=== PATIENT | female | born 1950 | race Caucasian/White ===

== ENCOUNTER 2018-11-04 11:53 | Observation (INO) ==
[2018-11-04] MEDS ORDERED: NS 1,000 ML IV ONE (13:25)
--- NOTE | 2018-11-04 13:31 | PROVIDER DOCUMENTATION ---
HPI-Syncope/Dizziness - General Chief Complaint: Dizziness Stated Complaint: DIZZY, LIGHT HEADED Time Seen by Provider: 11/04/18 13:08 Source: patient Allergies/Adverse Reactions: Patient Allergies Allergy/AdvReac Type Severity Reaction Status Date / Time cephalexin [From Keflex] Allergy ITCHING Verified 11/04/18 12:04 codeine Allergy ITCHING Verified 11/04/18 12:04 glimepiride Allergy ITCHING Verified 11/04/18 12:04 metaxalone [From Skelaxin] Allergy ITCHING Verified 11/04/18 12:04 metformin Allergy ITCHING Verified 11/04/18 12:04 morphine Allergy ITCHING Verified 11/04/18 12:04 nitrofurantoin Allergy ITCHING Verified 11/04/18 12:04 [From Macrodantin] Penicillins Allergy ITCHING Verified 11/04/18 12:04 rofecoxib [From Vioxx] Allergy ITCHING Verified 11/04/18 12:04 Home Medications: Home Medication List Medication Instructions Recorded Confirmed Last Taken Type Albuterol Sulfate [Proair 90 mg PO 4XDAY 11/04/18 11/04/18 Unknown History Respiclick] Aspirin [Aspir-Low] 81 mg PO DAILY 11/04/18 11/04/18 Unknown History Atorvastatin Calcium [Lipitor] 20 mg PO DAILY 11/04/18 11/04/18 Unknown History Buspirone [Buspar] 10 mg PO BID 11/04/18 11/04/18 Unknown History Clonidine [Catapres] 0.2 mg PO TID 11/04/18 11/04/18 Unknown History Cyclobenzaprine [Flexeril] 10 mg PO DAILY 11/04/18 11/04/18 Unknown History Dabigatran Etexilate Mesylate 150 mg PO BID 11/04/18 11/04/18 Unknown History [Pradaxa] Dapagliflozin Propanediol [Farxiga] 5 mg PO DAILY 11/04/18 11/04/18 Unknown History Dulaglutide [Trulicity] 0.75 mg PO ORDERED 11/04/18 11/04/18 Unknown History Furosemide [Lasix] 80 mg PO DAILY 11/04/18 11/04/18 Unknown History Glipizide [Glipizide ER] 10 mg PO DAILY 11/04/18 11/04/18 Unknown History Hydrocodone/APAP 10 mg/325 mg 10 mg PO TID 11/04/18 11/04/18 Unknown History [[place]irt[place]-10] Isosorbide Mononitrate E.r. [Imdur] 60 mg PO DAILY 11/04/18 11/04/18 Unknown History Lansoprazole [Prevacid] 30 mg PO DAILY 11/04/18 11/04/18 Unknown History Mesalamine [Pentasa] 500 mg PO BID 11/04/18 11/04/18 Unknown History Metoclopramide HCl [Reglan] 5 mg PO 4XDAY 11/04/18 11/04/18 Unknown History Metoprolol Succinate E.r. [Toprol 100 mg PO BID 11/04/18 11/04/18 Unknown History Xl] Nitroglycerin [Nitrostat] 0.4 mg PO PRN PRN 11/04/18 11/04/18 Unknown History Pentoxifylline E.r. [Trental] 400 mg PO TID 11/04/18 11/04/18 Unknown History Ursodiol [Actigall] 300 mg PO BID 11/04/18 11/04/18 Unknown History - History of Present Illness-Syncope/Dizzy Nature of Presenting Problem: 68yof present to ER with c/o low blood pressure and dizziness. Pt states she was at the eye dr and her BP dropped to 70/40, became dizzy and confused. Pt states she feels better now. Pt poor historian. Prior Episodes: reports: no prior history, single episode today Timing: reports: improving Position/Activity at time of episode: reports: sitting Symptoms prior to episode: reports: lightheaded, confusion. denies: headache, nausea/vomiting, chest pain, diaphoresis Context: reports: felt faint Loss of Consciousness: no loss of consciousness Location of injury. (If syncope resulted in an injury.): reports: none Current Symptoms: reports: none/feels normal, short of breath. denies: fever, chest pain, nausea, vomiting, dizzy, headache, blurred vision Review of Systems - Adult - REVIEW OF SYSTEMS - ADULT Constitutional: reports: no symptoms reported. denies: chills, fever Eyes: reports: no symptoms reported Ears, Nose, Mouth & Throat: reports: no symptoms reported Cardiovascular: reports: no symptoms reported. denies: chest pain Respiratory: reports: see HPI, shortness of breath, wheezing. denies: cough Gastrointestinal: reports: no symptoms reported. denies: abdominal pain, nausea, vomiting Genitourinary: reports: no symptoms reported Musculoskeletal: reports: no symptoms reported Integumentary: reports: no symptoms reported Neurological: reports: see HPI, dizziness/vertigo, syncope. denies: he adache/migraines, numbness, paresthesia, slurred speech Psychiatric: reports: no symptoms reported Endocrine: reports: no symptoms reported Hematologic/Lymphatic: reports: no symptoms reported Allergic/Immunologic: reports: no symptoms reported All Other Systems: Reviewed and Negative Past History - Adult - PAST MEDICAL HISTORY-ADULT Review of Records: reports: Old Records Reviewed, Nursing Assessment Review, Medications Reviewed, Social history reviewed & non-contributory. Major Childhood Illnesses: reports: denies history Cardiovascular: reports: A-Fib, HTN, hyperlipidemia Respiratory: reports: COPD Gastrointestinal: reports: denies history, GERD Obstetrical/Gynecological: reports: denies history Genitourinary: reports: kidney disease Musculoskeletal: reports: denies history Neurological: reports: TIA Endocrine/Immune: reports: denies history Other Conditions: reports: denies history - PRIOR SURGERIES/PROCEDURES Surgical/Procedure History: reports: cholecystectomy, Physical Exam-General - PHYSICAL EXAM-ADULT Initial Vital Signs Reviewed: Yes - CONSTITUTIONAL General Appearance: alert, no apparent distress - EYES Eyes: PERRL/EOMI, pink conjunctivae - HEAD, EARS, NOSE, MOUTH & THROAT HENMT: moist mucous membranes, normal ENT inspection. negative: angioedema - NECK Neck: non-tender, full range of motion, supple, normal inspection. negative: C- spine tenderness, lymphadenopathy, meningismus - RESPIRATORY Respiratory: no respiratory distress, no accessory muscle use, decreased breath sounds (L), wheezing (bilaterally) - CARDIOVASCULAR Cardiovascular: regular rate, rhythm, no edema - GASTROINTESTINAL (ABDOMEN) Abdominal Exam: normal bowel sounds, non tender, soft. negative: distended, guarding, rigid, rebound - LYMPHATIC Lymphatic: no adenopathy - MUSCULOSKELETAL Back Exam: normal inspection Extremity: normal range of motion, normal inspection, no pedal edema, no calf tenderness, normal capillary refill. negative: erythema - SKIN Integumentary: warm/dry, pallor. negative: diaphoresis, erythema, jaundice - NEUROLOGIC Neurologic: grossly normal, no motor/sensory deficits - PSYCHIATRIC Psych/Mental Status: normal thought content, normal thought process, oriented x 3 Progress - PLAN OF CARE/RESULTS Progress/Plan/Lab Results: Vital Signs - 8 hr 11/04/18 11:58 11/04/18 13:55 11/04/18 14:00 Temperature 97.5 F L 98.2 F Pulse Rate 84 71 Pulse Rate [Sitting] 84 Pulse Rate [Standing] 82 Pulse Rate [Supine] 83 Respiratory Rate 16 20 Blood Pressure 95/67 151/76 Blood Pressure [Sitting] 126/74 Blood Pressure [Standing] 98/60 Blood Pressure [Supine] 137/80 O2 Sat by Pulse Oximetry 99 97 Laboratory Results - last 24 hr 11/04/18 11/04/18 11/04/18 13:49 13:49 13:49 WBC 9.96 RBC 5.37 Hgb 15.7 Hct 46.9 MCV 87.3 MCH 29.2 MCHC 33.5 RDW Std Deviation 12.8 Plt Count 244 MPV 11.5 H Immature Gran % (Auto) 0.3 Neut % (Auto) 70.4 Lymph % (Auto) 19.3 L Bulloch % (Auto) 7.4 Eos % (Auto) 2.2 Baso % (Auto) 0.4 Immature Gran # (Auto) 0.03 Neut # (Auto) 7.01 H Lymph # (Auto) 1.92 Bulloch # (Auto) 0.74 H Eos # (Auto) 0.22 Baso # (Auto) 0.04 D-Dimer, Quantitative Sodium 138 Potassium 3.4 L Chloride 97 L Carbon Dioxide 32 Anion Gap 10 BUN 11 Creatinine 1.2 H Estimated GFR/1.73 m2 45 BUN/Creatinine Ratio 9 Glucose 172 H Calculated Osmolality 279 Calcium 9.4 Total Bilirubin 0.50 AST 13 ALT 9 L Alkaline Phosphatase 136 H Creatine Kinase 25 Troponin T < 0.010 Total Protein 7.2 Albumin 3.8 Globulin 3.0 Albumin/Globulin Ratio 1.0 Urine Source Urine Color Urine Clarity Urine pH Ur Specific [place] Urine Protein Urine Ketones Urine Blood Urine Nitrite Urine Bilirubin Urine Urobilinogen Urine Microscopic RBC Urine WBC Urine Microscopic WBC Ur Epithelial Cells Urine Bacteria Urine Yeast Urine Glucose 11/04/18 11/04/18 13:49 15:15 WBC RBC Hgb Hct MCV MCH MCHC RDW Std Deviation Plt Count MPV Immature Gran % (Auto) Neut % (Auto) Lymph % (Auto) Bulloch % (Auto) Eos % (Auto) Baso % (Auto) Immature Gran # (Auto) Neut # (Auto) Lymph # (Auto) Bulloch # (Auto) Eos # (Auto) Baso # (Auto) D-Dimer, Quantitative 1.38 H Sodium Potassium Chloride Carbon Dioxide Anion Gap BUN Creatinine Estimated GFR/1.73 m2 BUN/Creatinine Ratio Glucose Calculated Osmolality Calcium Total Bilirubin AST ALT Alkaline Phosphatase Creatine Kinase Troponin T Total Protein Albumin Globulin Albumin/Globulin Ratio Urine Source CLEAN CATCH Urine Color YELLOW Urine Clarity CLEAR Urine pH 7.0 Ur Specific [place] 1.005 Urine Protein NEGATIVE Urine Ketones NEGATIVE Urine Blood TRACE Urine Nitrite NEGATIVE Urine Bilirubin NEGATIVE Urine Urobilinogen NORMAL Urine Microscopic RBC <10 Urine WBC 2+ A Urine Microscopic WBC 10-20 A Ur Epithelial Cells <10 Urine Bacteria NEGATIVE Urine Yeast PRESENT Urine Glucose 3+(500 mg/dL) A Orders Category Date Time Status Nursing- Obtain EKG ONCE Care 11/04/18 13:09 Active Orthostatic Vital Signs NOW Care 11/04/18 13:24 Active Orthostatic Vital Signs NOW Care 11/04/18 15:55 Active CHEST-2 VIEWS [RAD] Stat Exams 11/04/18 13:[address] ANGIOGRM PULMONARY ARTERIES [CT] Stat Exams 11/04/18 14:[address] HEAD W/O CONTRAST [CT] Stat Exams 11/04/18 14:30 Completed CBC WITH DIFF [HEME] Stat Lab 11/04/18 13:49 Completed CK PROFILE [SP CHEM] Stat Lab 11/04/18 13:49 Completed COMPREHENSIVE METABOLIC PANEL [CHEM] Stat Lab 11/04/18 13:49 Completed D-DIMER [COAG] Stat Lab 11/04/18 13:49 Completed TROPONIN T Stat Lab 11/04/18 13:49 Completed URINE CULTURE [RM] Routine Lab 11/04/18 15:39 Ordered ua [URINALYSIS PL W/POSS RFLX CULT] [URINALYSIS] Stat Lab 11/04/18 15:15 Completed 0.9% Sodium Chloride Inj [Ns] 1,000 ml Med 11/04/18 13:25 Discontinued IV 999 mls/hr EKG [EKG] Stat Ther 11/04/18 13:09 Draft Result Diagrams: 11/04/18 13:49 11/04/18 13:49 - REASSESSMENT Reassessment #1 Time Reassessed: 14:43 (discussed results thus far with pt. Pt confirms she has hx of afib. Made aware will order CTA.) Reassessment #2 Time Reassessed: 15:50 (discussed pt with Dr Ambriz, agrees with tx plan thus far. Advises to dc home with cipro 250mg x 3 days) Reassessment #3 Time Reassessed: 16:17 (pt still orthostatic after fluids. Will call hospitalist for admission) - EKG 1 Time of EKG reading by physician:: 14:21 EKG Read and Signed by:: Cecille Ambriz EKG Interpretation (*Must complete 3 of following elements*): Abnormal Rate: 83 Rhythm: Atrial Fibrillation - XRAY 1 XRAY Study: Chest Impression: See EMR Report (FINDINGS: The lungs are well expanded. The heart is not enlarged. The vessels are not distended. There are no infiltrates. No pleural effusions. There has been surgery to the lower neck. IMPRESSION: No acute abnormality. Electronically signed by Dong Malone 11/04/2018 1:37 PM) - CT/MRI 1 CT Study: Head Impression: See EMR Report (FINDINGS: No parenchymal hemorrhage. No epidural or subdural hematoma. No subarachnoid hemorrhage. There are chronic ischemic changes with old lacunar infarcts. No mass identified on this noncontrasted exam. No hydrocephalus. No sinus opacification. IMPRESSION: 1.No hemorrhage 2.Chronic ischemic changes with old lacunar infarcts. This exam was performed using automated exposure control, adjustment of mA or kV according to patient size, and/or use of iterative reconstruction technique. Electronically signed by Dong Malone 11/04/2018 2:41 PM) - CONSULTS/PCP/HOSPITALIST Notification #1 *Consult/PCP/Hospitalist*: Dr Brooks Time Discussed: 16:24 Consult Disposition: Will see in ED, Admit Departure - Departure Date of Disposition Decision: 11/04/18 Time of Disposition Decision: 16:26 DIAGNOSIS: Orthostatic hypotension, Positive D-dimer Syncope Qualifiers: Syncope type: unspecified Qualified Code(s): R55 - Syncope and collapse Atrial fibrillation Qualifiers: Atrial fibrillation type: unspecified Qualified Code(s): I48.91 - Unspecified atrial fibrillation Disposition: ADMITTED INPATIENT 09 Certified Medical Emergency: Emergent Condition: Fair Referrals and Follow-Ups: Scott Esposito MD [Primary Care Provider] - - Critical Care Note This patient required my direct & personal management of CC.: No Attestation - Physician/ PRATIK Attestation Patient care was provided by Advanced Practice Provider:: Yes Advanced Practice Provider:: Bernabe Siu Advanced Practice Provider documentation review:: The Mid-level provider documentation, treatment plan and medical decision making was reviewed by the physician who agrees with all treatment and medical decision making by the MLP. The physician spent face to face time with patient:: No Advanced Practice Provider documentation review:: Supervising physician onsite and consulted in the evaluation and care of this patient. The physician did not have a face to face encounter with the patient.
--- NOTE | 2018-11-04 13:40 | Diag Imaging Result Doc PS360 ---
EXAM: CHEST-2 VIEWS HISTORY: dizzy, hypotension TECHNIQUE: Chest two views COMPARISON: None. FINDINGS: The lungs are well expanded. The heart is not enlarged. The vessels are not distended. There are no infiltrates. No pleural effusions. There has been surgery to the lower neck. IMPRESSION: No acute abnormality. Electronically signed by Dong Malone 11/04/2018 1:37 PM
[2018-11-04 13:57] LABS: BASO# 0.04 X1000 (0.0-0.2); BASO% 0.4 % (0.0-0.8); EOS# 0.22 X1000 (0.0-0.7); EOS% 2.2 % (0.0-10.0); HEMATOCRIT 46.9 % (37.0-47.0); HEMOGLOBIN 15.7 g/dL (12.0-16.0); IMM GRAN# 0.03 X1000 (0.0-0.04); IMM GRAN% 0.3 % (0.0-0.5); LYMPH# 1.92 X1000 (1.2-3.4); LYMPH% 19.3 % (20.5-51.1); MCH 29.2 PG (27-31); MCHC 33.5 g/dL (33-37); MCV 87.3 FL (81-99); MONO# 0.74 X1000 (0.11-0.59); MONO% 7.4 % (1.7-9.3); MPV 11.5 FL (7.4-10.4); NEUT# 7.01 X1000 (1.4-6.5); NEUT% 70.4 % (42.2-75.2); PLT 244 X1000 (130-400); RBC 5.37 XMIL (4.2-5.4); RDW 12.8 % (11.5-14.5); WBC 9.96 X1000 (4.8-10.8)
[2018-11-04 14:19] LABS: ALBUMIN 3.8 g/dL (3.5-5.0); CALCIUM 9.4 mg/dL (8.8-10.2); CREATININE 1.2 mg/dL (0.5-0.9); POTASSIUM 3.4 mmol/L (3.5-5.1); TOTAL BILIRUBIN 0.5 mg/dL (0.20-1.00); TOTAL PROTEIN 7.2 g/dL (6.3-8.3)
--- NOTE | 2018-11-04 14:43 | Diag Imaging Result Doc PS360 ---
EXAM: CT HEAD W/O CONTRAST HISTORY: dizzy, confusion TECHNIQUE: CT head without contrast COMPARISON: None. FINDINGS: No parenchymal hemorrhage. No epidural or subdural hematoma. No subarachnoid hemorrhage. There are chronic ischemic changes with old lacunar infarcts. No mass identified on this noncontrasted exam. No hydrocephalus. No sinus opacification. IMPRESSION: 1.No hemorrhage 2.Chronic ischemic changes with old lacunar infarcts. This exam was performed using automated exposure control, adjustment of mA or kV according to patient size, and/or use of iterative reconstruction technique. Electronically signed by Dong Malone 11/04/2018 2:41 PM
--- NOTE | 2018-11-04 15:18 | EKG Report ---
Test Performed on : 11/04/2018 2:21:46 PM Test Reason : dizzy Blood Pressure : / mmHG Vent. Rate : 083 BPM Atrial Rate : 129 BPM P-R Int : 000 ms QRS Dur : 068 ms QT Int : 376 ms P-R-T Axes : 000 027 076 degrees QTc Int : 441 ms Atrial fibrillation. Nonspecific ST and T wave abnormality Abnormal ECG No previous ECGs available Unconfirmed Result
[2018-11-04 15:36] LABS: BILIRUBIN URINE NEGATIVE (NEGATIVE); BLOOD URINE TRACE (NEGATIVE); CLARITY CLEAR (CLEAR); COLOR YELLOW; KETONE URINE NEGATIVE (NEGATIVE); PROTEIN URINE NEGATIVE (NEGATIVE); SP GRAVITY URINE 1.005; URINE SOURCE CLEAN CATCH
[2018-11-04 15:37] LABS: LEUKOCYTES URINE 2+ (NEGATIVE); NITRITE URINE NEGATIVE (NEGATIVE); UROBILINOGEN URINE NORMAL
[2018-11-04 15:38] LABS: URINE BACTERIA NEGATIVE /HFP; URINE EPITHELIAL CELLS <10 /HPF (<10); URINE RBC <10 /HPF (<10)
[2018-11-04 15:39] LABS: URINE YEAST PRESENT /HPF
--- NOTE | 2018-11-04 15:40 | Diag Imaging Result Doc PS360 ---
EXAM: CT ANGIOGRM PULMONARY ARTERIES HISTORY: syncope, orthostatic, + ddimer TECHNIQUE: CT chest with intravenous contrast. Pulmonary arterial protocol. MIP images obtained COMPARISON: None. FINDINGS: Normal opacification of the pulmonary arteries and their major branches. No pleural effusions. No cardiomegaly. Severe atherosclerosis. Dilated distal thoracic aorta measuring at least 3.6 x 4.0 cm. The aorta at the gastroesophageal junction measures 3.3 x 4.0 cm. No enlarged lymph nodes. Mild emphysema. No infiltrates. No bronchiectasis. The vessels are distended. Images through the upper abdomen reveal a severely atrophic left kidney as well as a cholecystectomy. IMPRESSION: 1.No pulmonary emboli 2.Prominent atherosclerosis with a dilated distal thoracic aorta 3.Mild emphysema 4.Mild pulmonary edema This exam was performed using automated exposure control, adjustment of mA or kV according to patient size, and/or use of iterative reconstruction technique. Electronically signed by Dong Malone 11/04/2018 3:37 PM
[2018-11-04] MEDS ORDERED: ZOFRAN IV PRN (17:49)
[2018-11-04] MEDS ORDERED: NS 1,000 ML IV SCH ×2 (18:00→18:25)
--- NOTE | 2018-11-04 21:18 | HISTORY AND PHYSICAL ---
CHIEF COMPLAINT: Low blood pressure and dizziness. HISTORY OF PRESENT ILLNESS: This is a 68-year-old female who presented to the emergency room on the advice of her editorial assistant. She stated that she went for an eye exam for blurry vision, and she was told she had a blood pressure of 70/46, and was told to come to the emergency room for evaluation. She states she has a history of atrial fibrillation, although she describes it as, "I go in and out of it." She is unable to tell when she is in atrial fib, although she does state that for the last 4 to 5 days, she has been a little lightheaded, a little bit more short of breath with activity. She denied any palpitations, chest pain. She does state she has had a toothache. She has had some subjective fevers along with the pain over the last 2 weeks. The pain got so bad that she has had very little to eat or drink, and on exam she does have dry mucous membranes. She has not been to a dentist as she states they are too expensive. She was trying to just let it clear itself up. She has a history of CAD. She thinks she has 1 cardiac stent. She does have a history of peripheral artery disease, having reportedly bilateral carotid artery stents as well as bilateral lower extremity stents, although at this time she is unsure exactly which placement. Recent colonoscopy with polypectomies, with 1 polyp reported cancerous. This was done per Dr. Mcgregor. PAST MEDICAL HISTORY: 1. COPD. 2. Diabetes mellitus. 3. Gastroesophageal reflux disease. 4. Hypertension. 5. Chronic kidney disease with one functioning kidney. 6. TIA in 1994. 7. Atrial fibrillation. PAST SURGICAL HISTORY: 1. . 2. Cholecystectomy. 3. Bilateral carotid endarterectomies with reported stents. SOCIAL: She smokes about a pack a day. She denies alcohol or illicit drug use. ALLERGIES: Keflex, codeine, glimepiride, Skelaxin, metformin, morphine, Macrodantin, penicillin, and Vioxx, which all caused itching. HOME MEDICATIONS: A list will be obtained by the nursing staff. Once verified and reviewed, will restart as appropriate. REVIEW OF SYSTEMS: Discussed with patient with pertinent positives stated in the HPI. She denied any syncope, any chest pain or palpitations, shortness of breath, cough, any chills, PND or orthopnea, any nausea, vomiting, diarrhea, constipation, black or bloody vomitus or stools, hematuria, dysuria, frequency, urgency. PHYSICAL EXAMINATION: GENERAL: This is a 68-year-old female who is lying on the stretcher in the emergency room in no distress. VITAL SIGNS: Blood pressure is 151/76 with a heart rate of 71, respirations are 20, temperature is 98.2 degrees oral, with room air saturations 97%. ORTHOSTATIC VITAL SIGNS: Blood pressure lying is 128/77 with a heart rate of 85, sitting 136/69 with a heart rate of 82, standing 91/65 with a heart rate of 87. HEENT: Head is normocephalic, atraumatic. Mucous membranes are dry. NECK: Supple. Trachea midline. No JVD. CARDIOVASCULAR: Irregularly irregular rate and rhythm. S1 and S2 are appreciated. No murmur. She has no lower extremity edema. Calves are nontender bilateral with peripheral pulses palpable x4 extremities. PULMONARY: Breath sounds are diminished throughout. Chest rises and falls symmetrically with respiration. Chest wall is nontender to palpation. GASTROINTESTINAL: Abdomen is soft, nontender, nondistended, with bowel sounds in all 4 quadrants. GENITOURINARY: She has no CVA or suprapubic tenderness. NEUROLOGIC: She is alert and oriented x3. SKIN: Warm and dry. LABS: 1. WBC is 9.9 with hemoglobin 15.7, hematocrit 46.9, and platelets 244,000. D-dimer is 1.38. Sodium 138, potassium 3.4, BUN 11, creatinine 1.2, with a glucose of 172. Urinalysis reveals 10 to 20 microscopic white blood cells, negative for bacteria, with yeast present. 2. EKG reveals atrial fibrillation at a rate of 83. 3. CT of the head reveals no hemorrhage, chronic ischemic changes with old lacunar infarcts. 4. Chest x-ray: No acute abnormality. 5. Pulmonary arteriogram: No pulmonary emboli. Prominent atherosclerosis with a dilated distal thoracic aorta, mild emphysema, mild pulmonary edema. ASSESSMENT AND PLAN: 1. Hypotension. Causes are multifactorial. This could be secondary to dehydration as well as atrial fibrillation. She was given a liter bolus in the emergency room. We will continue with gentle hydration at 50 mL an hour until we are able to assess her cardiac status. Check orthostatic vital signs twice daily. We will identify her home medications and continue as appropriate. Of course, she will be placed on telemetry. 2. History of atrial fibrillation, as stated above. 3. Hypertension. Will hold antihypertensives at present. Will identify her home medications and continue when appropriate. 4. Diabetes mellitus. At present, she will be placed on patterned blood glucoses with sliding scale insulin. 5. Gastroesophageal reflux disease. Continue proton pump inhibitor. 6. Chronic kidney disease with one functioning kidney. We will trend labs daily. Renal dose medications. 7. History of transient ischemic attack. Aware. 8. Chronic obstructive pulmonary disease. We will give DuoNeb q.4 hours p.r.n. 9. Nicotine abuse. Smoking cessation was discussed with the patient. 10. Reported recent diagnosis of 1 polyp. 11. Reported colon cancer with a positive polyp, with no followup at present. Colonoscopy was done per Dr. Mcgregor. 12. Elevated D-dimer. CTA pulmonary was negative for pulmonary embolus. We will obtain a bilateral lower extremity Doppler. 13. Reported abscessed or painful tooth. Clindamycin. 14. Further treatments pending hospital course. Dictated by GAIL Latham for Jay Larsen MD cc: GAIL Latham MD
[2018-11-04] MEDS: CLEOCIN PO SCH (21:20)
--- NOTE | 2018-11-04 21:21 | HISTORY AND PHYSICAL ---
ADDENDUM: Patient seen and examined by myself. Full note dictated and discussed with nurse practitioner. Patient presented to the hospital after having gone to the dentist. She was noted to be lightheaded. Her blood pressure was 70/40 upon arrival to the ER. She has been given fluids. She does not appear to be dehydrated. While she is lying flatly in the bed, her blood pressures actually are elevated; however, they drop dramatically when she stands. Does have a history of atrial fibrillation, hypertension, COPD. We are going to admit her to the hospital with IV fluids and will follow her blood pressures. cc: Jay Larsen MD
[2018-11-04] MEDS: HUMALOG (PARKWAY) SUBQ SCH (22:11)
[2018-11-05] MEDS: CLEOCIN PO SCH ×2 (02:56→07:53)
[2018-11-05] MEDS: PRILOSEC PO SCH ×2 (05:39→06:05)
[2018-11-05 06:06] LABS: HEMATOCRIT 44.4 % (37.0-47.0); HEMOGLOBIN 14.6 g/dL (12.0-16.0); MCV 88.1 FL (81-99); RBC 5.04 XMIL (4.2-5.4); WBC 7.85 X1000 (4.8-10.8)
[2018-11-05 06:07] LABS: BASO# 0.03 X1000 (0.0-0.2); BASO% 0.4 % (0.0-0.8); EOS# 0.26 X1000 (0.0-0.7); EOS% 3.3 % (0.0-10.0); IMM GRAN# 0.03 X1000 (0.0-0.04); IMM GRAN% 0.4 % (0.0-0.5); LYMPH# 2.49 X1000 (1.2-3.4); LYMPH% 31.7 % (20.5-51.1); MCHC 32.9 g/dL (33-37); MONO# 0.79 X1000 (0.11-0.59); MONO% 10.1 % (1.7-9.3); MPV 11.5 FL (7.4-10.4); NEUT# 4.25 X1000 (1.4-6.5); NEUT% 54.1 % (42.2-75.2); PLT 215 X1000 (130-400); RDW 12.9 % (11.5-14.5)
[2018-11-05 06:25] LABS: ALBUMIN 3.2 g/dL (3.5-5.0); CALCIUM 8.2 mg/dL (8.8-10.2); CREATININE 1.3 mg/dL (0.5-0.9); POTASSIUM 3.3 mmol/L (3.5-5.1); TOTAL BILIRUBIN 0.4 mg/dL (0.20-1.00); TOTAL PROTEIN 6.2 g/dL (6.3-8.3)
[2018-11-05] MEDS: HUMALOG (PARKWAY) SUBQ SCH ×2 (07:19→12:19)
[2018-11-05 10:13] VITALS: BP 131/74
--- NOTE | 2018-11-05 11:39 | Vascular Study Report ---
EXAM: Venous U/S Bilateral Legs HISTORY: elevated ddimer TECHNIQUE: Baldwin scale, color Doppler, and duplex evaluation was performed. Standard protocol. COMPARISON: None. FINDINGS: The deep veins of the bilateral lower extremities demonstrate appropriate compressibility and augmentation. No intraluminal thrombus is visualized. There is no evidence for DVT. The superficial veins appear patent. IMPRESSION: No evidence for deep venous thrombosis bilateral lower extremities. Electronically signed by Carolann Gan 11/05/2018 11:37 AM
--- NOTE | 2018-11-06 12:27 | DISCHARGE SUMMARY ---
ADMISSION DATE: 11/04/2018 DISCHARGE DATE: 11/05/2018 DIAGNOSES: 1. Hypotension, resolved. This is up secondary to dehydration. 2. History of atrial fibrillation. 3. Hypertension. 4. Diabetes mellitus. 5. Gastroesophageal reflux disease. 6. Chronic kidney disease in a patient with one functioning kidney. 7. History of transient ischemic attack. 8. Chronic obstructive pulmonary disease. 9. Recent diagnosis of colon cancer with 1 positive polyp from colonoscopy. The patient has been followed with Dr. Mcgregor. 10. Elevated D-dimer with a CTA pulmonary and bilateral lower extremity Doppler negative for DVT or pulmonary embolus. 11. Reported abscessed tooth. Will continue clindamycin. 12. Dilated distal thoracic aorta being followed by vascular surgery in [place]. DIAGNOSTICS: 1. Chest x-ray revealed no acute abnormality. 2. CT of the head revealed no hemorrhage. Chronic ischemic changes with old lacunar infarcts. 3. CTA pulmonary. No pulmonary emboli, mild pulmonary edema. Mild emphysema, prominent atherosclerosis with a dilated distal thoracic aorta. 4. Bilateral lower extremity Doppler revealed no evidence of DVT. DISCHARGE VITAL SIGNS: Blood pressure 137/64 with a heart rate of 77, respirations 16, temperature is 98.9 degrees oral with room air saturations 98%. Discharge orthostatic vital signs lying, blood pressure is 131/74 with a heart rate of 88. Standing blood pressure 106/66 with a heart rate of 76. HOSPITAL COURSE: Ms. Oates presented to the emergency room on the instruction of her flooring mechanic after being found to have a blood pressure 70/46 for routine eye exam. She had a pressure of 95/67 on arrival to the emergency room. Patient was dehydrated having had very little p.o. intake over the last 2 weeks due to a toothache. She was given IV hydration at 50 mL an hour as we were unsure about her cardiac status. She did remain in a controlled rate of atrial fibrillation throughout the hospitalization. We did hold her antihypertensives. She was placed on pattern blood glucose with sliding scale insulin, and blood sugars ranged in the 103 to 190 range. She did have a creatinine of 1.2 and 1.3. She states that she has only 1 functioning kidney, and this is within her normal range. She was found to have an elevated D-dimer. Therefore, CTA pulmonary and bilateral lower extremity Doppler's were performed which revealed no DVT or pulmonary embolus. Today, blood pressures have been normal. She is not orthostatic static. She walked the vee with no dizziness or weakness, and thankfully she is ready for discharge. Of note, she does have a reported abscess tooth that she has been dealing with for 2 weeks. We started her on clindamycin which we will continue, and she is been instructed to call a dentist to be seen this week. DISCHARGE MEDICATIONS: 1. Clindamycin 450 mg p.o. q.6 hours x10 days. 2. Trulicity 0.75 mg p.o. 3. Trental 400 mg p.o. t.i.d. 4. Nitrostat 0.4 sublingual p.r.n. chest pain. 5. Toprol-XL 100 mg p.o. b.i.d. 6. Reglan 5 mg p.o. 4 times a day. 7. Mesalamine 500 mg p.o. b.i.d. 8. Prevacid 30 mg p.o. daily. 9. Imdur 60 mg p.o. daily. 10. [place] 10/325 p.o. t.i.d. 11. Glipizide 10 mg p.o. daily. 12. Lasix 80 mg p.o. daily. 13. Farxiga 5 mg p.o. daily. 14. Pradaxa 150 mg p.o. b.i.d. 15. Flexeril 10 mg p.o. daily. 16. Clonidine 0.2 mg p.o. t.i.d. 17. BuSpar 10 mg p.o. b.i.d. 18. Lipitor 20 mg p.o. daily. 19. Aspirin 81 mg p.o. daily. 20. ProAir [*]90 mg p.o. 4 times a day. FOLLOW-UP: 1. Dr. Scott Esposito 11/10/2018 at 1:45 in the afternoon. 2. She has been instructed to call to be seen sooner or return to the ER for any syncope, dizziness, chest pain, palpitations, systolic blood pressure less than 100, any temperature greater than 101, any nausea, vomiting, diarrhea, constipation, black or bloody vomitus stools, hematuria, dysuria, frequency, urgency or for any questions or concerns that she may have. 3. She is being discharged home in stable condition with family members. TIME SPENT: This is a greater than 30 minute discharge. Dictated by GAIL Latham for Jay Larsen MD cc: GAIL Latham MD
--- NOTE | 2018-11-06 19:32 | DISCHARGE SUMMARY ---
ADMISSION DATE: 11/04/2018 DISCHARGE DATE: 11/05/2018 ADDENDUM: Patient seen and examined by myself. Full note dictated and discussed with nurse practitioner. On discharge, patient is awake, alert, currently in no distress. She is able to ambulate. She will follow up outpatient with treatment facility of choice. cc: Jay Larsen MD
== END 2018-11-05 13:50 | disposition home or self-care (01) ==
LOC: P.MEDSURG 11:53 → P.ED 11:53
PROVIDERS: ATTEND Family Medicine